=== PATIENT | female | born 1975 | race African-American/Black ===

== ENCOUNTER 2020-10-19 12:47 | Emergency (ER) | payer MEDICARE | END 2020-10-19 15:16 | disposition home or self-care (01) | LOC: CSHERS 12:47 | DX: R53.1 Weakness (principal); G35 Multiple sclerosis; F17.290 Nicotine dependence, other tobacco product, uncomplicated; Z79.899 Other long term (current) drug therapy | CPT/HCPCS: 93005 ==

== ENCOUNTER 2020-10-19 18:28 | Inpatient (IN) | payer MEDICARE ==
[2020-10-19] MEDS ORDERED: methylPREDNISolone Sod Succ/PF 1,000 MG in Sodium Chloride 0.9% 250 ML 250 ML IVPB SCH (21:00)
[2020-10-19] MEDS ORDERED: Nicotine 14 MG PATCH TD SCH (21:15)
[2020-10-19 21:29] LABS: #Eosinphils 0.2 10x3/uL (0.0-0.5); #Monocytes 0.4 10x3/uL (0.0-1.1); #Neutrophils 2.6 10x3/uL (1.5-8.4); %Basophils 0.6 % (0.0-2.0); %Eosinophils 4.3 % (0.0-6.0); %Lymphocytes 33.7 % (18.0-47.0); %Monocytes 8.6 % (0.0-10.0); %Neutrophils 52.6 % (40.0-75.0); Hemoglobin 10.4 g/dL (12.0-15.5); Mean Corpuscular HGB CONC 33.2 g/dL (32.0-36.0); Mean Corpuscular Volume 90.2 fl (81.6-98.3); Mean Platelet Volume 10.2 fl (7.4-10.4); Platelet Count 194 10x3/uL (150-450); RBC Distribution Width 12.9 % (11.5-14.5); Red Blood Cell (RBC) Count 3.47 10x6/uL (3.90-5.03); White Blood Cell (WBC) Count 4.9 10x3/uL (3.5-10.5)
[2020-10-19 21:41] LABS: BHCG - Serum Negative (NEGATIVE); Pregs Control Background? CLEAR/WHITE (CLR/WHITE); Pregs Control Bar Appear? YES (CONTROL BAR)
[2020-10-19 21:47] LABS: Anion Gap 11 mmol/L (10-20); BUN (Urea Nitrogen) 7 mg/dL (7.0-18.7); Calc. Creatinine Clearance 0 mL/min (70-130); Calcium 8.8 mg/dL (7.8-10.44); Carbon Dioxide 25 mmol/L (22-29); Chloride 105 mmol/L (98-107); Glucose 88 mg/dL (70-105); Magnesium 1.8 mg/dL (1.6-2.6); Potassium 3.3 mmol/L (3.5-5.1); Sodium 138 mmol/L (136-145)
[2020-10-19] MEDS ORDERED: SODIUM CHLORIDE 0.9% IVPB SCH (23:00)
[2020-10-19] MEDS ORDERED: methylPREDNISolone Sod Succ 1 GM in Sodium Chloride 0.9% 250 ML 250 ML IVPB SCH (23:00)
[2020-10-19] MEDS ORDERED: METHYLPREDNISOLONE SOD SUCC IVPB SCH (23:00)
[2020-10-19] MEDS: Nicotine 21 MG PATCH TD SCH (23:23)
[2020-10-20 07:58] VITALS: BMI 23.6
[2020-10-20] MEDS: Cholecalciferol 1,000 UNITS (25 MCG) TAB PO SCH ×2 (09:55→21:01)
[2020-10-20] MEDS: Enoxaparin Sodium 40 MG/0.4 ML SYRINGE SC SCH (09:55)
[2020-10-20] MEDS: Ascorbic Acid 500 mg Chewable Tablet PO SCH (09:55)
[2020-10-20] MEDS ORDERED: methylPREDNISolone Sod Succ 1 GM in Sodium Chloride 0.9% 250 ML 250 ML IVPB SCH (14:30)
[2020-10-20 16:43] LABS: SARS-CoV-2 PCR by NAA Not Detected (NotDetected)
[2020-10-20] MEDS ORDERED: Magnesium 2 GM/50 ML 2 GM in Premix Bag 1 BAG IVPB SCH (18:00)
[2020-10-20] MEDS ORDERED: Potassium Chloride 10 MEQ in Premix Bag 1 BAG IVPB SCH (18:00)
[2020-10-20] MEDS: Gabapentin 100 MG CAP PO SCH (21:00)
[2020-10-20] MEDS: Baclofen 10 MG TAB PO SCH (21:01)
[2020-10-20] MEDS: Nicotine 21 MG PATCH TD SCH (21:04)
[2020-10-20] MEDS: methylPREDNISolone Sod Succ 1 GM in Sodium Chloride 0.9% 250 ML 250 ML IVPB SCH (23:41)
[2020-10-21 05:09] LABS: #Monocytes 0.5 10x3/uL (0.0-1.1); #Neutrophils 16.9 10x3/uL (1.5-8.4); %Basophils 0.1 % (0.0-2.0); %Lymphocytes 5.4 % (18.0-47.0); %Monocytes 2.5 % (0.0-10.0); %Neutrophils 91.3 % (40.0-75.0); Hemoglobin 12.1 g/dL (12.0-15.5); Mean Corpuscular Volume 91.1 fl (81.6-98.3); Mean Platelet Volume 10.5 fl (7.4-10.4); Platelet Count 243 10x3/uL (150-450); RBC Distribution Width 12.9 % (11.5-14.5); Red Blood Cell (RBC) Count 4.03 10x6/uL (3.90-5.03); White Blood Cell (WBC) Count 18.5 10x3/uL (3.5-10.5)
[2020-10-21 05:21] LABS: Anion Gap 10 mmol/L (10-20); BUN (Urea Nitrogen) 11 mg/dL (7.0-18.7); Calc. Creatinine Clearance 81 mL/min (70-130); Calcium 9.1 mg/dL (7.8-10.44); Carbon Dioxide 24 mmol/L (22-29); Chloride 110 mmol/L (98-107); Glucose 125 mg/dL (70-105); Potassium 3.4 mmol/L (3.5-5.1); Sodium 141 mmol/L (136-145)
[2020-10-21 06:15] LABS: Bilirubin Neg (Negative); Blood, Urine Negative (Negative); Clarity Clear (Clear); Glucose, Urine (Dipstick) Normal (Negative); Ketone, Urine Negative (Negative); Leukocyte 25 (Negative); Nitrite Negative (Negative); Protein, Urine (Dipstick) Negative (Neg-Trace); Urobilinogen Normal mg/dL (Less than 2); pH, Urine 6.5 (5.0-9.0)
[2020-10-21 06:17] LABS: Urine Culture Reflex No No
[2020-10-21 06:26] LABS: Bacteria/HPF 1+ HPF (None Seen); RBC/HPF 0-3 HPF (0-3); Squamous Epithelial 0-3 HPF (0-3); WBC/HPF 0-3 HPF (0-3)
[2020-10-21] MEDS: Ascorbic Acid 500 mg Chewable Tablet PO SCH (08:03)
[2020-10-21] MEDS: Cholecalciferol 1,000 UNITS (25 MCG) TAB PO SCH ×2 (08:04→22:34)
[2020-10-21] MEDS: Enoxaparin Sodium 40 MG/0.4 ML SYRINGE SC SCH (08:04)
[2020-10-21] MEDS: Gabapentin 100 MG CAP PO SCH (22:33)
[2020-10-21] MEDS: Baclofen 10 MG TAB PO SCH (22:34)
[2020-10-21] MEDS: Nicotine 21 MG PATCH TD SCH (22:35)
[2020-10-21] MEDS: methylPREDNISolone Sod Succ 1 GM in Sodium Chloride 0.9% 250 ML 250 ML IVPB SCH (23:46)
[2020-10-22 07:30] LABS: #Monocytes 0.2 10x3/uL (0.0-1.1); #Neutrophils 12.6 10x3/uL (1.5-8.4); %Basophils 0.1 % (0.0-2.0); %Lymphocytes 3.4 % (18.0-47.0); %Monocytes 1.2 % (0.0-10.0); %Neutrophils 94.7 % (40.0-75.0); Mean Corpuscular HGB CONC 33.1 g/dL (32.0-36.0); Mean Corpuscular Hemoglobin 30.6 pg (27.0-33.0); Mean Corpuscular Volume 92.5 fl (81.6-98.3); Mean Platelet Volume 10.9 fl (7.4-10.4); Platelet Count 227 10x3/uL (150-450); RBC Distribution Width 13.1 % (11.5-14.5); Red Blood Cell (RBC) Count 3.59 10x6/uL (3.90-5.03); White Blood Cell (WBC) Count 13.3 10x3/uL (3.5-10.5)
[2020-10-22 07:57] LABS: Anion Gap 11 mmol/L (10-20); BUN (Urea Nitrogen) 10 mg/dL (7.0-18.7); Calc. Creatinine Clearance 92 mL/min (70-130); Calcium 8.5 mg/dL (7.8-10.44); Carbon Dioxide 26 mmol/L (22-29); Chloride 110 mmol/L (98-107); Glucose 117 mg/dL (70-105); Potassium 3.9 mmol/L (3.5-5.1); Sodium 143 mmol/L (136-145)
[2020-10-22] MEDS: Cholecalciferol 1,000 UNITS (25 MCG) TAB PO SCH ×2 (09:04→21:01)
[2020-10-22] MEDS: Ascorbic Acid 500 mg Chewable Tablet PO SCH (09:04)
[2020-10-22] MEDS: Enoxaparin Sodium 40 MG/0.4 ML SYRINGE SC SCH (09:04)
[2020-10-22] MEDS: Gabapentin 100 MG CAP PO SCH (21:00)
[2020-10-22] MEDS: Nicotine 21 MG PATCH TD SCH (21:01)
[2020-10-22] MEDS: Baclofen 10 MG TAB PO SCH (21:01)
[2020-10-22] MEDS: methylPREDNISolone Sod Succ 1 GM in Sodium Chloride 0.9% 250 ML 250 ML IVPB SCH (23:19)
[2020-10-23] MEDS: Ascorbic Acid 500 mg Chewable Tablet PO SCH (08:21)
[2020-10-23] MEDS: Cholecalciferol 1,000 UNITS (25 MCG) TAB PO SCH ×2 (08:21→21:25)
[2020-10-23] MEDS: Enoxaparin Sodium 40 MG/0.4 ML SYRINGE SC SCH (08:21)
[2020-10-23] MEDS: DIMETHYL FUMARATE PO SCH ×2 (19:06→19:07)
[2020-10-23] MEDS: Baclofen 10 MG TAB PO SCH (21:25)
[2020-10-23] MEDS: Nicotine 21 MG PATCH TD SCH (21:25)
[2020-10-23] MEDS: Gabapentin 100 MG CAP PO SCH (21:25)
[2020-10-23] MEDS: methylPREDNISolone Sod Succ 1 GM in Sodium Chloride 0.9% 250 ML 250 ML IVPB SCH (23:29)
[2020-10-24] MEDS: DIMETHYL FUMARATE PO SCH ×2 (06:37→20:56)
[2020-10-24] MEDS: Enoxaparin Sodium 40 MG/0.4 ML SYRINGE SC SCH (08:27)
[2020-10-24] MEDS: Cholecalciferol 1,000 UNITS (25 MCG) TAB PO SCH ×2 (08:27→22:38)
[2020-10-24] MEDS: Ascorbic Acid 500 mg Chewable Tablet PO SCH (08:27)
[2020-10-24] MEDS: Gabapentin 100 MG CAP PO SCH (20:56)
[2020-10-24] MEDS: Nicotine 21 MG PATCH TD SCH (20:56)
[2020-10-24] MEDS: Baclofen 10 MG TAB PO SCH (20:56)
[2020-10-24] MEDS: methylPREDNISolone Sod Succ 1 GM in Sodium Chloride 0.9% 250 ML 250 ML IVPB SCH (23:32)
[2020-10-25] MEDS: DIMETHYL FUMARATE PO SCH (06:23)
[2020-10-25] MEDS: Ascorbic Acid 500 mg Chewable Tablet PO SCH (08:44)
[2020-10-25] MEDS: Cholecalciferol 1,000 UNITS (25 MCG) TAB PO SCH (08:44)
[2020-10-25] MEDS: Enoxaparin Sodium 40 MG/0.4 ML SYRINGE SC SCH (08:44)
[2020-10-25 12:49] VITALS: BP 114/82; TEMP 98.2
== END 2020-10-25 15:03 | disposition home or self-care (01) | DRG 60 ==
LOC: CSHERS 18:28 → CSHERHOLD 20:24 → CSHTELE 10-20 08:29 → OBSVTOIN 10-21 08:51
PROVIDERS: ADMIT Family Medicine; ATTEND Family Medicine
DX: G35 Multiple sclerosis (principal); E87.6 Hypokalemia; F17.210 Nicotine dependence, cigarettes, uncomplicated; E83.42 Hypomagnesemia; Z20.822 Contact with and (suspected) exposure to COVID-19
CPT/HCPCS: 36415; 70553; 80048; 81001; 83735; 84703; 85025; 87086; 87635; 93005; 96372; 99285; G0378; J1650; J2930; J7050; U0003; U0005